=== PATIENT | female | born 1935 | race Caucasian/White ===

== ENCOUNTER → 2017-11-12 | Outpatient (CLI) | payer OTHER, MEDICARE | LOC: FIMAGING 12:31 | PROVIDERS: ATTEND Physician Assistant | DX: Z12.31 Encounter for screening mammogram for malignant neoplasm of breast (principal); Z80.3 Family history of malignant neoplasm of breast ==

== ENCOUNTER → 2018-02-18 | Outpatient (CLI) | payer OTHER, MEDICARE | LOC: FIMAGING 10:35 | PROVIDERS: ATTEND Physician Assistant | DX: Z13.820 Encounter for screening for osteoporosis (principal); M81.0 Age-related osteoporosis without current pathological fracture; Z78.0 Asymptomatic menopausal state ==

== ENCOUNTER → 2018-03-14 | Outpatient (CLI) | payer OTHER, MEDICARE | LOC: FIMAGING 08:26 | PROVIDERS: ATTEND Orthopaedic Surgery | DX: Z01.818 Encounter for other preprocedural examination (principal) ==

== ENCOUNTER 2018-03-20 08:56 | Observation (INO) | payer OTHER, MEDICARE ==
--- NOTE | 2018-03-20 06:21 | PDHPUP ---
History & Physical Update H&P update statement: This history and physical update is based on an assessment of the patient which was completed after admission or registration (within 24 hours), but prior to the surgery/procedure. H&P update: H&P reviewed & patient examined, no change in patient's condition since H&P completed
[~2018-03-20 08:56] MED LIST: ROPIVACAINE 0.2% 80 MG, EPINEPHrine 0.2 MG, KETOROLAC TROMETHAMINE 30 MG in SYRINGE 0 ML IU ONE; TRANEXAMIC ACID 3,000 MG in NS (SYRINGE) 50 ML IRR ONE
[2018-03-20] MEDS ORDERED: TRANEXAMIC ACID 3,000 MG/50 ML BAG IRR ONE (09:29)
[2018-03-20] MEDS ORDERED: ACETAMINOPHEN 325 MG TAB PO ONE (09:48)
[2018-03-20] MEDS ORDERED: DEXAMETHASONE 4 MG/ML VIAL IVP ONE (09:48)
[2018-03-20] MEDS ORDERED: FAMOTIDINE 20 MG TAB PO ONE (09:48)
[2018-03-20] MEDS ORDERED: ceFAZolin 2 GM/DEXTROSE 100 ML IV ONE (09:48)
[2018-03-20] MEDS ORDERED: LR 1,000 ML IV ONE (09:53)
--- NOTE | 2018-03-20 11:17 | PDANEPAE ---
ANE Past Medical History - Cardiovascular History Hx Hypertension: No Hx Arrhythmias: No Hx Chest Pain: No Hx Coronary Artery / Peripheral Vascular Disease: No Hx CHF / Valvular Disease: No Hx Palpitations: No - Pulmonary History Hx COPD: No Hx Asthma/Reactive Airway Disease: No Hx Recent Upper Respiratory Infection: No Hx Oxygen in Use at Home: No Hx Sleep Apnea: No Sleep Apnea Screening Result - Last Documented: Negative - Neurologic History Hx Cerebrovascular Accident: No Hx Seizures: No Hx Dementia: No - Endocrine History Hx Diabetes: No - Renal History Hx Renal Disorders: No - Liver History Hx Hepatic Disorders: No - Neurological & Psychiatric Hx Hx Neurological and Psychiatric Disorders: No - Cancer History Hx Cancer: Yes Cancer History Comment: 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 mother seizure disorder - GI History Hx Gastrointestinal Disorders: No - Other Health History Other Health History: osteopenia. osteoporosis R wrist - Chronic Pain History Chronic Pain: No - Surgical History Prior Surgeries: none ANE Review of Systems Review of Systems: - Exercise capacity METS (RN): 5 METS ANE Patient History - Allergies Allergies/Adverse Reactions: doxycycline Allergy (Verified 03/12/18 11:10) Other-Enter Comments prednisone Allergy (Verified 03/20/18 10:38) Penicillins Adverse Reaction (Mild, Verified 03/20/18 10:39) Rash tape Allergy (Uncoded 03/20/18 10:39) - Home Medications Home Medications: Ascorbic Acid [Vitamin C 500 mg (*)] 500 mg PO DAILY 03/05/18 [Last Taken Unknown] Cholecalciferol Vit D3 [Vitamin D3 (*)] 1,000 units PO DAILY 03/05/18 [Last Taken Unknown] Levothyroxine [Synthroid 100 mcg (*)] 100 mcg PO DAILY06 03/05/18 [Last Taken Unknown] - NPO status NPO Since - Liquids (Date): 03/20/18 NPO Since - Liquids (Time): 06:00 NPO Since - Solids (Date): 03/19/18 NPO Since - Solids (Time): 19:00 - Smoking Hx Smoking Status: Never smoked - Family Anes Hx Family Hx Anesthesia Complications: none ANE Labs/Vital Signs - Vital Signs Blood Pressure: 163/83 Heart Rate: 78 Respiratory Rate: 18 O2 Sat (%): 98 Height: 152.4 cm Weight: 55.338 kg ANE Physical Exam - Airway Neck exam: FROM Mallampati Score: Class 1 Mouth exam: normal dental/mouth exam - Pulmonary Pulmonary: no respiratory distress - Cardiovascular Cardiovascular: regular rate and rhythym - ASA Status ASA Status: I ANE Anesthesia Plan Anesthesia Plan: GA w LMA, spinal Regional Anesthesia: adductor canal FNB
[2018-03-20] MEDS ORDERED: SCOPOLAMINE HYDROBROMIDE 1 MG/3 DAYS PATCH TD ONE (11:18)
[2018-03-20] MEDS ORDERED: PROPOFOL/EMULSION 500 MG/50 ML BOTTLE IV ONE (11:22)
[2018-03-20] MEDS ORDERED: SCOPOLAMINE HYDROBROMIDE 1 MG/3 DAYS PATCH TD SCH (11:30)
[2018-03-20] MEDS ORDERED: PROPOFOL 200 MG/20 ML VIAL ONE (11:49)
[2018-03-20] MEDS ORDERED: ROPIVACAINE HCL 150 MG/30 ML INJ ONE (12:28)
[2018-03-20] MEDS ORDERED: HYDROCODONE/APAP 5/325 TAB PO PRN (12:47)
[2018-03-20] MEDS ORDERED: LR 500 ML IV PRN (12:47)
[2018-03-20] MEDS ORDERED: ONDANSETRON 4 MG/2 ML VIAL IVP PRN ×2 (12:47→12:49)
[2018-03-20] MEDS ORDERED: NALOXONE HCL 0.4 MG/ML INJ IVP PRN (12:47)
[2018-03-20] MEDS ORDERED: fentaNYL 100 MCG/2 ML INJ IVP PRN (12:47)
[2018-03-20] MEDS ORDERED: PROMETHAZINE HCL 25 MG/ML INJ IVP PRN (12:49)
[2018-03-20] MEDS ORDERED: ONDANSETRON DISINTEGRATING 4 MG TAB PO PRN (12:49)
[2018-03-20] MEDS ORDERED: METOCLOPRAMIDE 10 MG/2 ML VIAL IVP PRN (12:49)
[2018-03-20] MEDS ORDERED: LACTULOSE 20 GM/30 ML UDCUP PO PRN (12:49)
[2018-03-20] MEDS ORDERED: PROMETHAZINE HCL 25 MG SUPPR PR PRN (12:49)
[2018-03-20] MEDS ORDERED: diphenhydrAMINE 25 MG CAP PO PRN (12:49)
[2018-03-20] MEDS ORDERED: DIPHENOXYLATE/ATROPINE LOMOTIL 1 TAB PO PRN (12:49)
[2018-03-20] MEDS ORDERED: POLYETHYLENE GLYCOL 3350 17 GM PKT PO PRN (12:49)
[2018-03-20] MEDS ORDERED: TEMAZEPAM 15 MG CAP PO PRN (12:49)
[2018-03-20] MEDS ORDERED: BISACODYL 10 MG SUPP PR PRN (12:49)
[2018-03-20] MEDS ORDERED: MAGNESIUM HYDROXIDE 30 ML UDCUP PO PRN (12:49)
--- NOTE | 2018-03-20 12:49 | POSTOPPROG ---
Post Op Note Date of Operation: 03/20/18 Surgeon: Baldev Slater Web Developer Programmer: jeaneth slater Anesthesiologist: dr. vick Anesthesia: Spinal, Other (Specify) (adductor canal block) Pre-op Diagnosis: Left knee OA Post-op Diagnosis: same Indication: left knee pain Procedure: L TKA robot assited, computer daphney and sensor assisted Findings: severe knee OA Inf/Abcess present in the surg proc area at time of surgery?: No EBL: 50-100
[2018-03-20] MEDS ORDERED: LR 1,000 ML IV SCH (13:00)
[2018-03-20] MEDS: CYCLOBENZAPRINE 10 MG TAB PO PRN (17:04)
[2018-03-20] MEDS: ACETAMINOPHEN 325 MG TAB PO SCH (17:04)
[2018-03-20] MEDS: HYDROmorphONE/DILAUDID 2 MG TAB PO PRN (18:16)
[2018-03-20] MEDS: ceFAZolin 2 GM/DEXTROSE 100 ML IV SCH (20:22)
[2018-03-20] MEDS: FAMOTIDINE 20 MG TAB PO SCH (20:23)
[2018-03-20] MEDS: ASPIRIN 81 MG CHEWABLE TAB PO SCH (20:23)
[2018-03-20] MEDS: SENNOSIDES/DOCUSATE SODIUM TAB PO SCH (20:23)
[2018-03-21] MEDS: ACETAMINOPHEN 325 MG TAB PO SCH ×3 (00:11→11:45)
[2018-03-21] MEDS: CYCLOBENZAPRINE 10 MG TAB PO PRN (00:38)
[2018-03-21] MEDS: HYDROmorphONE/DILAUDID 2 MG TAB PO PRN ×3 (00:38→11:13)
[2018-03-21] MEDS: ceFAZolin 2 GM/DEXTROSE 100 ML IV SCH (05:23)
[2018-03-21] MEDS ORDERED: LEVOTHYROXINE 100 MCG TAB PO SCH (06:00)
[2018-03-21 07:49] VITALS: BP 126/60
[2018-03-21] MEDS: ASPIRIN 81 MG CHEWABLE TAB PO SCH (09:08)
[2018-03-21] MEDS: SENNOSIDES/DOCUSATE SODIUM TAB PO SCH (09:09)
[2018-03-21] MEDS: FAMOTIDINE 20 MG TAB PO SCH (09:09)
--- NOTE | 2018-03-21 11:07 | SOAPPROG ---
SOAP Progress Note Assessment/Plan: Assessment: Kaitlyn is doing well today POD 1 s/p L TKA pain is well controlled on oral pain meds Anemia: level is expected initially postop VTE ppx: recommend ASA 81 mg BID for 4 weeks d/c planning: d/c to home pending release from PT Plan: 03/21/18 11:05 Subjective: kaitlyn is doing well today, denies SOB, chest pain and N/V. mild pain Objective: Vital Signs Temp Pulse Resp BP Pulse Ox 36.8 C 57 L 16 126/60 H 97 03/21/18 07:48 03/21/18 07:48 03/21/18 07:48 03/21/18 07:48 03/21/18 07:48 Laboratory Results 03/21/18 04:33 03/21/18 04:33 03/20/18 03/21/18 03/22/18 05:59 05:59 05:59 Intake Total 1350 250 Output Total 1600 Balance -250 250 LLE: incision dressing is clean and dry, NVI, +pf/df ICD10 Worksheet Patient Problems: Problems Problem Status Onset Primary osteoarthritis of left knee Acute - ICD10 Problem Qualifiers (1) Primary osteoarthritis of left knee
--- NOTE | 2018-03-21 12:36 | GDS ---
[f rep st] DISCHARGE SUMMARY ADMISSION DIAGNOSIS: Left knee osteoarthritis. DISCHARGE DIAGNOSIS: Left knee osteoarthritis. PROCEDURE: Left total knee arthroplasty, robotic assisted computer navigation. VTE PROPHYLAXIS: Recommend aspirin 81 mg twice daily for 4 weeks. BRIEF DESCRIPTION OF HOSPITAL STAY: Patient was admitted for an elective joint arthroplasty. The pa rafita tolerated the procedure well and has passed physical therapy. The patient was given appropriat e antibiotic prophylaxis and venous thromboembolism prophylaxis. The patient's pain was well control led on oral pain medication, patient was holding down food, and had urinated. Decision was made to d ischarge the patient. The patient was given post-operative prescriptions pre-operatively. PLAN: To follow up with Dr. Martinez at [facility] in 2 to 3 weeks. /[id number]/MODL
--- NOTE | 2018-03-21 16:37 | GOP ---
[f rep st] OPERATIVE REPORT DATE OF OPERATION: 03/20/2018 SURGEON: Sara Martinez MD SCIENTOLOGIST: Maira Martinez PA-C ANESTHESIA: Spinal. PREOPERATIVE DIAGNOSIS: Left knee osteoarthritis. POSTOPERATIVE DIAGNOSIS: Left knee osteoarthritis. PROCEDURE PERFORMED: Left total knee arthroplasty with computer navigation, robotic assist. FINDINGS: ESTIMATED BLOOD LOSS: 30 cc. INDICATIONS: The patient is an 82-year-old female with severe and progressive pain and deformity of the left knee unresponsive to conservative care. The risks and benefits of surgical intervention were explained in detail. DESCRIPTION OF PROCEDURE: The patient was brought to the operative room and placed on the table in the supine position. Spinal anesthesia was induced without difficulty. A pneumatic tourniquet was applied about the left proximal thigh, and the leg was prepped and draped in a sterile fashion. The leg ohara was applied. After exsanguination by elevation the tourniquet was inflated to 250 mmHg. Incision was made anterior medial from the tibial tuberosity to a point 2cm proximal to the superior pole of the patella. Medial parapatellar arthrotomy was carried out from the superior pole of the patella and posteriorly in line with the fibers of the Type II VMO. The medial collateral ligament was elevated and the infrapatellar fat pad was resected. The patella was everted and the articular surface was excised. A 29 mm patellar button was placed. Attention was turned first to the distal aspect of the femur. After exposure of the femur, 2 half pins were placed for fixation of the femoral array. In a similar fashion, 2 pins were placed anteromedial on the tibia for fixation of the tibial array. External land marking and registration of the hip center was performed without difficulty. Internal femoral and tibial registration was carried out without difficulty and the femoral and tibial checkpoints were placed and verified for accuracy. Attention was turned to the femur. The foot print for the size 2 femoral component was cut with the saw using the [employer] robotic system and verified for accuracy against the CT based plan. In a similar fashion, the saw was used to cut the footprint for the size 2 tibial component using the [employer] system and verified for accuracy against the CT based plan. The tibial articular surface was excised without difficulty. The knee was extended and the remnants of the medial and lateral meniscus were excised. The posterior capsule was injected with ropivacaine, epinephrine and Toradol. A size 2 tibial tray was positioned. Trial reduction was then carried out. There was excellent range of motion, alignment, and stability using the 2 x 9 mm permanent polyethylene. [employer]sensor smart trial was used to confirm joint balance and rotation. All trials were then removed. The joint was thoroughly irrigated and carefully dried. The press fit CR components were implanted. The permanent 2 x 9 mm permanent polyethylene was placed without difficulty. The tourniquet was deflated and all bleeders were coagulated. The wound was thoroughly irrigated and closed using interrupted sutures of 2-0 Vicryl for the joint capsule. The subcu was closed with 3-0 Vicryl and the skin with 4-0 Monocryl. Dermabond and Steri-Strips were applied followed by a compressive dressing. The patient was then moved from the operating room to the recovery room in good condition, having tolerated the procedure well. PATHOLOGY: Severe medial and patellofemoral osteoarthritis. /[id number]/MODL MTDD
[2018-03-23] MEDS ORDERED: PATCH REMOVAL 1 EA PATCH TD SCH (11:16)
--- NOTE | 2018-04-02 12:07 | GPROG ---
[f rep st] PROGRESS NOTE The patient's cardiovascular status is normal, stable. The patient's respiratory status is normal, stable. Pain control is satisfactory at this time, with p.r.n. treatment ordered. Nausea and vomiting control are satisfactory at this time, with p.r.n. treatment ordered. MENTAL STATUS: The patient is moderately sleepy, easily arousable. Complications due to anesthesia are none at this time. /[id number]/MODL
== END 2018-03-21 12:19 | disposition home or self-care (01) ==
LOC: F3N 08:56
PROVIDERS: ADMIT Orthopaedic Surgery; ATTEND Orthopaedic Surgery
DX: M17.12 Unilateral primary osteoarthritis, left knee (principal); D62 Acute posthemorrhagic anemia; Z88.0 Allergy status to penicillin; Z82.49 Family history of ischemic heart disease and other diseases of the circulatory system
CPT/HCPCS: 20985; 27447; 73560; 88311; 97116; 97161; 97165; C1776; G8978; G8979; G8980; G8987; G8988; G8989; J0171; J0690; J1100; J1885; J2704; J2795